=== PATIENT | female | born 1970 | race Caucasian/White ===

== ENCOUNTER 2018-05-29 07:27 | Day surgery (SDC) | payer OTHER ==
[~2018-05-29] VITALS: Ht 175.3 cm; Wt 158.8 kg
--- NOTE | ~2018-05-29 | OR ---
[facility] [address] [place], [place] [address] Draft DATE OF OPERATION: 05/29/2018 SURGEON: Mikael Gonzalez MD PREOPERATIVE DIAGNOSES: 1. Loose body, right knee. 2. Early osteoarthritis, right knee. PROCEDURE PERFORMED: Knee arthroscopy with removal of loose body. ANESTHESIA: General. SPECIMENS AND COMPLICATIONS: There were no specimens or complications. TOURNIQUET: Not used. WHAT WAS DONE: The patient was taken to the operating room. After anesthesia was induced and airway secured, the patient was positioned, prepped, and draped in a routine sterile fashion. 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 After routine prep and sterile drape, the proposed anterolateral portal and proposed superomedial poral were infiltrated with 0.25% Marcaine with 1:200,000 epinephrine. We then made small incisions in each of these areas. The outflow cannula was inserted superomedially and the arthroscope anterolaterally. Diagnostic arthroscopy of the knee revealed a moderate hemorrhagic synovitis in the suprapatellar pouch. There were areas of grade 3 to grade 4 chondral exchange underwriting consultant the posterior aspect of the patella with reciprocal changes in the femoral trochlea. The medial recess was unremarkable. Medial compartment showed some moderate degenerative change again grade 3 borderline early grade 4. Intercondylar notch showed some fraying and shredding of the ACL, but no other pathology. The lateral compartment showed areas of grade 2 to grade 3 chondral exchange underwriting consultant the weightbearing portion of the femoral condyle and the tibial plateau. The lateral recess was where we found a loose body that measured about 1 cm x about 12 mm. We made an auxiliary superolateral portal. Through that we placed the Grabber and we were able to grab the loose body and delivered out of the knee. The knee was copiously irrigated and drained. The portals were closed. Sterile dressings were applied and the patient was awakened and PATIENT NAME: HOMER KATHLEEN RHONDA OPERATIVE REPORT DATE OF : 68 REPORT #: [id number] PHYSICIAN: MIKAEL GONZALEZ MD PCP: CHRISTIANO PASTRANA PA-C REPORT IS CONFIDENTIAL AND NOT TO BE RELEASED WITHOUT AUTHORIZATION [facility] [address] [place] [id number] Draft taken to the recovery room where she arrived in stable condition. Counts were correct and antibiotic protocols were followed. Mikael Gonzalez MD WFB/MODL /[id number] Copies: ~ PATIENT NAME: HEVERHOMER OPERATIVE REPORT DATE OF : 68 REPORT #: [id number] PHYSICIAN: MIKAEL GONZALEZ MD PCP: CHRISTIANO PASTRANA PA-C REPORT IS CONFIDENTIAL AND NOT TO BE RELEASED WITHOUT AUTHORIZATION
[~2018-05-29 07:27] MED LIST: ALEVE220 M1 PO; AMLODIPINE BESYL5 MG PO; COUMADIN5 MG PO; COUMADIN7.5 MG PO; GABAPENTIN100 MG PO; GLIMEPIRIDE1 MG PO; HYDROCHLOROTHIA25 MG PO; LEVOTHYROXINE200 MCG PO; LORATADINE10 MG PO; LOSARTAN POTASS50 MG PO; LOVENOX100 MG/1 M SUB-Q; MELOXICAM15 MG PO; NORCO 5-325 TA1 EACH PO; WARFARIN SODIUM5 MG PO
--- NOTE | 2018-05-29 09:59 | NUR ---
PT RESTING, BUT I COULD TELL SHE WAS STRUGGLING. PT BEGAN TO SHARE LWITH ME THAT SHE HS HAD SEVERAL KNEE SURGURIES OVER THE YEARS, BUT REALLY NEEDS TO WALK. 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 PT FEELS PRESSURE TO RETURN HOME TO CARE FOR THEM. WE HAD GOOD DISCUSSION, PT REQUESTED PRAYER. WILL FOLLOW NEEDED
--- NOTE | 2018-05-29 10:06 | NUR ---
05/29/18 1006 Sheets,Sosa [id number] PT ARRIVED TO PACU ON 8L VIA MASK, ORAL AIRWAY IN PLACE, RESP EVEN AND UNLABORED. 1002 PT WOKE TO TACTILE STIMULI AND FOLLOWED COMMANDS TO OPEN MOUTH AND ORAL AIRWAY IS REMOVED. PT REORIENTED TO PACU. PT CLOSED EYES AND IS RESTING IN BED. NO MOANING OR GRIMACING NOTED. RIGHT FOOT PULSE STRONG AND CAP REFIL LESS THEN 2 SECONDS. O2 DECREASED TO 6L VIA AMSK.
--- NOTE | 2018-05-29 10:36 | NUR ---
PUDDING AND ICED WATER GIVEN. PATIENT EATING AND DRINKING AND TOLERATING THAT WELL.
[2018-05-29] MEDS ORDERED: ULTRAM50 MG PO (11:19)
--- NOTE | 2018-05-29 11:43 | NUR ---
PATIENT UP TO BATHROOM W/RN STANDBY. PATIENT REPORTS LESS PAIN THAN SHE HAD PREOPERATIVELY. PATIENT DOES WELL AMBULATING. PRN GIVEN.
--- NOTE | 2018-05-29 12:03 | NUR ---
PATIENT DENIES NAUSEA. VERBAL DISCHARGE INSTRUCTIONS GIVEN AND PATIENT VERBALIZES UNDERSTANDING. PATIENT IS GETTING DRESSED.
== END 2018-05-29 12:05 | disposition home or self-care (01) ==
LOC: DS 07:27 → OPS 07:27 → DS 07:30 → OPS 08:00 → DS 08:00 → OPS 08:30
PROVIDERS: Orthopaedic Surgery
PROC: 0SCC4ZZ Extirpation of Matter from Right Knee Joint, Percutaneous Endoscopic Approach (ICD-10-PCS; principal; 2018-05-29 08:30)
DX: M23.41 Loose body in knee, right knee (principal); M17.11 Unilateral primary osteoarthritis, right knee; E03.9 Hypothyroidism, unspecified; E11.9 Type 2 diabetes mellitus without complications; I10 Essential (primary) hypertension; Z86.711 Personal history of pulmonary embolism; Z79.84 Long term (current) use of oral hypoglycemic drugs; Z79.899 Other long term (current) drug therapy; Z79.1 Long term (current) use of non-steroidal anti-inflammatories (NSAID); Z87.891 Personal history of nicotine dependence
CPT/HCPCS: J0690; J1100; J2250; J2405; J3010; J3301; J7120